=== PATIENT | female | born 1930 | race Caucasian/White ===

== ENCOUNTER → 2017-03-24 | Outpatient (CLI) | payer OTHER, MEDICARE ==
[~2017-03-24] VITALS: Ht 165.1 cm; Wt 76.7 kg
[~2017-03-24] MED LIST: ANTIVERT25 MG PO; ATIVAN1 MG PO; ATORVASTATIN CA80 MG PO; CARISOPRODOL 3350 MG PO; HYDROCODONE-AP1 EAC6 PO; LISINOPRIL10 MG PO; NAPROSYN500 MG PO; OXYBUTYNIN 5 MG5 M2 PO; PREDNISONE 5 MG5 M1 PO; PROZAC10 MG PO; TRAZODONE HCL50 MG PO; VALACYCLOVIR1000 MG PO
--- NOTE | ~2017-03-24 | HPC ---
[facility] [address] [place] [address] PAIN MANAGEMENT CONSULTATION Name: AUREA VIEIRA Room #: REG [facility]reras Jessica.#: [id number] Admission: 03/24/17 Attend Phys: Ariel Castillo DO Discharge: Date of : 31 Report #: [id number] THIS REPORT FOR: //name// CC: Ariel Mccarty MD DATE OF SERVICE: 03/24/2017 DATE OF SERVICE: 03/24/2017. REFERRING PHYSICIAN: Dr. Yung Mccarty. CHIEF COMPLAINT: Right mid and low back pain. HISTORY OF PRESENT ILLNESS: As you know, the patient is an 86-year-old female who has been experiencing right mid and low back pain that began 02/2017. The area of discomfort involves the lower thoracic upper lumbar region and does not radiate in a dermatomal distribution in this directly over what appears to be the free floating eleventh and twelfth rib. It worsens with upper body movement and stretching. Indicates pain has not been improved with conservative medical therapy. The patient states no injury, no trauma that may have led to symptom development. She describes the pain as rhythmic and stabbing, places current pain score 5/10, daily average of 5/10, worst pain has been is 10/10. The patient states pain is exacerbated with any type of movement, improves with sitting in a recliner. She has been referred to our service by her primary care physician to discuss options of treatment for myofascial symptoms. PAST MEDICAL HISTORY: 1. Degenerative joint disease. 2. Osteoarthritis. 3. Breast cancer status post surgery. 4. Daily dizziness. 5. Anxiety disorder. 6. Depression. 7. Dyslipidemia. 8. Hypertension. 9. Urinary incontinence. PAST SURGICAL HISTORY: 1. Hysterectomy. 2. Excision of breast cancer 30 years ago. 3. Revision of breast cancer. It should be a repeat breast cancer excision 10 years ago. SOCIAL HISTORY: The patient denies tobacco, IV or illicit drug use. Admits to [facility] [address] [place] [address] PAIN MANAGEMENT CONSULTATION Name: AUREA VIEIRA Room #: REG [facility].#: [id number] Admission: 03/24/17 Attend Phys: Ariel Castillo DO Discharge: Date of : 31 Report #: [id number] one alcoholic beverage per day. She is a retired office sales consultant insurance. She retired 20 years ago, at the age of 66. She is not receiving any disability income. She is not in litigation in regards to her pain. REVIEW OF SYSTEMS: Positive for decrease in appetite, fatigue and weakness, loss of appetite, changes in bowel movements, frequent urination, nocturia, incontinence, dribbling to urine, lightheadedness and dizziness, depression, excessive urination, bleeding and bruising tendencies, mid back pain. All other review of systems negative per 12-point review of systems other than those listed in history of present illness. Pain impact score 57/70 indicating severe interference of daily activities secondary to pain. ALLERGIES; NOVOCAIN. CURRENT MEDICATIONS: Naproxen 500 mg once a day, meclizine 25 mg once a day, valacyclovir 1000 mg once a day, lorazepam 1 mg 3 times a day, Prozac 10 mg per day, trazodone 50mg 3 times a day, SOMA 350 mg per day, prednisone 5 mg once a day, hydrocodone/acetaminophen 5/325 one tab p.o. q. 4 hours p.r.n. for pain, atorvastatin 80 mg per day, lisinopril 10 mg per day, oxybutynin 5 mg twice a day. IMAGING: No imaging available. PHYSICAL EXAMINATION: VITAL SIGNS: Blood pressure 143/65, pulse 62, respiratory rate 16, unlabored. The patient is 96% on room air, height 5 feet 5 inches tall, weight 169 pounds, BMI calculated 28.1. GENERAL: Well developed, well nourished, well-hydrated 86-year-old female. She appears her stated age, placing current pain score around 5/10. HEENT: Normocephalic, atraumatic. Pupils equal, round, reactive to light. Extraocular muscles are intact. Sclerae nonicteric without injection. NEUROLOGIC: Cranial nerves 2-12 grossly intact. Speech is fluent. The patient deemed an excellent historian. LUNGS: Clear, no wheeze, rhonchi or rales. CARDIOVASCULAR: Regular. No appreciable gallop or rub. ABDOMEN: Soft, mildly obese, normoactive bowel sounds. EXTREMITIES: Show no clubbing, no cyanosis, no edema. MUSCULOSKELETAL: There is palpatory tenderness over the paraspinal musculature on the right mid thoracic, lower thoracic and upper lumbar area. There are no rashes, lesions, ulcerations indicative of herpes zoster. There is no change in color of the skin texture over the area. There is some palpatory tenderness over the eleventh and twelfth rib on the right side. Deep inhalation and exhalation causes slight change in overall pain. Stretching lateral flexion and rotation exacerbate symptoms and no radiation of symptoms in typical [facility] [address] [place] [address] PAIN MANAGEMENT CONSULTATION Name: AUREA VIEIRA Room #: REG JOSE D Adler#: [id number] Admission: 03/24/17 Attend Phys: Ariel LaurenceParul Castillo DO Discharge: Date of : 31 Report #: [id number] distribution of radiculopathy or costal neuritis. ASSESSMENT: Myofascial pain. PLAN: 1. Based on today's physical exam, history, the patient provides the description and the patient uses in regards to pain as well discrete location of her symptoms, likely source of the patient's pain is myofascial in origin. Majority of the patient's symptoms are overlying the eleventh and twelfth rib. She denies any injury or trauma. There is no ecchymosis, no changes in skin color or texture over the area concerning of any kind of trauma or potential rib injury. Appears to be all myofascial in origin. We discussed with the patient treatment options for myofascial pain. These would include the following. 2. We discussed physical therapy, stretching exercises, core strengthening and myofascial release to the area. We discussed medication management, the addition of a consistent nonsteroidal anti-inflammatory in conjunction with her current low dose opioid being provided by her primary care. We discussed trigger point injections as a treatment option. After reviewing risks and benefits of all proposed treatment options, the patient chose to undergo the trigger point injections and to begin stretching exercises and medication management. 3. The patient was started on naproxen sodium 500 mg dose 1 tab p.o. t.i.d., given the patient #90 tablets, advised the patient to watch for dyspepsia, worsening blood pressure, lower extremity edema with its use, if she notes any side effects, discontinue immediately and call for further instructions. 4. The patient will begin physical therapy. She can do this on her own at home or she can follow a formalized program. The patient chose to begin a light stretching at home, formalized program only if her symptoms do not improve with light stretching and exercises as she has already prepared at home. 5. The patient has been consented and we will perform trigger point injections in the area, I have found the 7 discrete trigger points that would require treatment. The patient was advised of the risks and benefits of this procedure. These risks include but are not necessarily limited to bleeding, bruising, infection, worsening pain, no relief of pain, also risk of temporary or permanent muscle weakness, temporary or permanent nerve damage, possible pneumothorax and . The patient states understood and wished to proceed. 6. We wish to thank Dr. Mccarty for the referral of this patient to our clinic. We will keep you apprised of her response to treatment as we address her myofascial symptoms. Again, we wish to thank you for the opportunity to participate in her care. DESCRIPTION OF PROCEDURE: Trigger point injections. After obtaining written consent, the patient was placed in a seated position. By palpating using a single finger 7 trigger points were identified that reproduced the patient's typical radiating pain pattern. Trigger points were [address] [address] PAIN MANAGEMENT CONSULTATION Name: AUREA VIEIRA Room #: REG CL[facility]reras Adler#: [id number] Admission: 03/24/17 Attend Phys: Ariel Castillo DO Discharge: Date of : 31 Report #: [id number] located in the mid thoracic, lower thoracic, paraspinal musculature. Each of the target sites of injection was cleansed with aseptic technique. A 27-gauge 1-1/4 inch needle was then advanced towards each trigger point until the patient's typical radiating pain pattern was reproduced. After negative aspiration for heme, 1 mL of a solution containing 1 mL 40 mg per mL, 40 mg total triamcinolone and 6 mL of bupivacaine 0.5%, bupivacaine was injected in a fanned out distribution at each of the trigger point for a total volume of 8 mL being given. Sterile bandages were placed over each injection site. The patient tolerated procedure well, carefully escorted to the recovery in stable condition. No apparent complications. After meeting discharge criteria, the patient discharged home. <ELECTRONICALLY SIGNED> By: Ariel Castillo DO 03/30/17 1235 0718 1215 Ariel Castillo DO /nt
[2017-03-24 10:39] VITALS: BP 143/65
== END ==
LOC: PAIN 08:43
DX: M19.90 Unspecified osteoarthritis, unspecified site (principal); F41.8 Other specified anxiety disorders; I10 Essential (primary) hypertension

== ENCOUNTER → 2017-04-07 | Outpatient (CLI) | payer OTHER, MEDICARE ==
[~2017-04-07] VITALS: Ht 165.1 cm; Wt 73.4 kg
--- NOTE | ~2017-04-07 | HPC ---
[facility] [place] [address] PAIN MANAGEMENT CONSULTATION Name: AUREA VIEIRA Room #: REG CL[facility]reras Adler#: [id number] Admission: 04/07/17 Attend Phys: Ariel Castillo DO Discharge: Date of : 31 Report #: [id number] THIS REPORT FOR: //name// CC: Ariel Mccarty MD DATE OF SERVICE: 04/07/2017 DATE OF SERVICE: 04/07/2017 CHIEF COMPLAINT: Right mid back and low back pain. HISTORY OF PRESENT ILLNESS: As you know, the patient is an 86-year-old female referred to our service for chronic right mid back and lower back symptoms. Apparently, her pain began without inciting injury or trauma in 02/2017. The area of discomfort at our initial visit involving lower thoracic upper lumbar region on the right side, did not radiate in a dermatomal distribution. We have discussed options for treatment at that visit. The patient underwent trigger point injections in the area. She returns today in followup visit reporting pain score 0/10. She states that her pain when present is intermittent. She describes the pain as pinching, shooting and cramping, but offers a pain score today 0/10. She has returned today in followup visit to discuss possible treatment options for potential recurrence of symptoms. ALLERGIES: NOVOCAIN. CURRENT MEDICATIONS: Oxybutynin 5 mg twice a day, lisinopril 10 mg once a day, atorvastatin 80 mg per day, prednisone 5 mg once a day, carisoprodol 350 mg 3 times a day, Desyrel 50 mg once a day, fluoxetine 10 mg per day, lorazepam 1 mg p.r.n., acyclovir 1000 mg once a day, meclizine 25 mg per day, naproxen 500 mg 3 times a day, trazodone 50 mg p.o. at bedtime. SOCIAL HISTORY: The patient denies tobacco, alcohol, IV or illicit drug use. She is retired. Retired years ago. She is unaccompanied today. IMAGING: No new imaging available. PHYSICAL EXAMINATION: VITAL SIGNS: Blood pressure 140/76, pulse 66, respiratory rate 16, unlabored. The patient is 95% on room air, height 5 feet 5 inches tall, weight 161.8 pounds, BMI calculated 26.9. GENERAL: Well developed, well nourished, well-hydrated 86-year-old female appearing her stated age, placing pain score 0/10. HEENT: Normocephalic, atraumatic. Pupils equal, round, reactive to light. EXTREMITIES: Show no clubbing, no cyanosis, no edema. [address] [address] PAIN MANAGEMENT CONSULTATION Name: AUREA VIEIRA Room #: REG CLContreras Adler#: [id number] Admission: 04/07/17 Attend Phys: Ariel Castillo DO Discharge: Date of : 31 Report #: [id number] MUSCULOSKELETAL: Previous palpatory tenderness over the right mid thoracic, lower thoracic and upper lumbar area is negative. There are no trigger points, no tender points noted. She appears to be doing very well, movement of the thoracolumbar area appears normal. No pain is elicited with rotation or lateral flexion. ASSESSMENT: Myofascial pain. PLAN: The patient has returned today in followup visit with near 100% improvement in overall pain with the previous trigger point injections. She is very pleased with response to the treatment. She returns today to discuss treatment options if her pain does return. At this point, I recommend the patient return to all activities of daily living. She appears to be doing very well from a pain management standpoint. Would recommend continuation of her current daily activities. Certainly if her pain does return or intensifies in anyway, she can return for the next in the series of trigger point injections. We are pleased to see the patient has done very well and we will see her back as necessary. <ELECTRONICALLY SIGNED> By: Ariel Castillo DO 04/14/17 0937 0701 0807 Ariel Castillo DO /nt
[2017-04-07 10:03] VITALS: BP 140/76
== END ==
LOC: PAIN 07:08
DX: M54.5 Low back pain (principal); M79.1 Myalgia; I10 Essential (primary) hypertension; F32.9 Major depressive disorder, single episode, unspecified

== ENCOUNTER 2018-03-14 05:40 | Day surgery (SDC) | payer OTHER, MEDICARE ==
[~2018-03-14] VITALS: Ht 165.1 cm; Wt 72.6 kg
--- NOTE | ~2018-03-14 | O ---
[facility] [place] [place] [address] OPERATIVE REPORT Name: AUREA VIEIRA Room #: 150-9 [facility]..#: [id number] Admission: 03/14/18 Attend Phys: Enrrique Roberson MD Discharge: Date of : 31 Report #: [id number] THIS REPORT FOR: //name// CC: Yung Roberson Omari Eugene MD DATE OF SERVICE: 03/14/2018 SURGEON: Enrrique Roberson MD MANDARIN TUTOR: None. PREOPERATIVE DIAGNOSIS: Bilateral upper lid dermatochalasia with superior visual field defect. POSTOPERATIVE DIAGNOSIS: Bilateral upper lid dermatochalasia with superior visual field defect. OPERATION PERFORMED: Bilateral upper lid functional blepharoplasty. ANESTHESIA: Local with IV sedation. COMPLICATIONS: None. INDICATIONS FOR SURGERY: This patient has acquired upper lid dermatochalasia with superior visual field loss both eyes because of excessive upper lid tissues to include skin and fat. Visual field testing demonstrates dense superior visual defects. Retesting with the upper lid elevated shows an improvement in visual field loss of over 30% and in excess of 12 degrees. The current procedures are undertaken in order to improve the patient's visual function. Informed consent was obtained to include but not limited to the loss of vision, bleeding, infection, scarring, failure to improve the problem and need for further surgery. DESCRIPTION OF OPERATION: The patient was taken to the operating room, where 2% Xylocaine with epinephrine mixed with equal parts of 0.75% Marcaine with Wydase was administered transcutaneously to each upper lid. The patient was then prepped and draped in the usual sterile fashion and a skin-marking pen was then utilized to outline an upper lid crease that was symmetrical on each side. Graefe forceps were then used to quantitate the redundant upper lid skin and it was similarly outlined. The incisions were then made with Abelardo scissors and a skin-muscle flap removed from each side with high-temp cautery. Hemostasis was achieved with the monopolar cautery as it was throughout the case. The [address] [address] OPERATIVE REPORT Name: AUREA VIEIRA Room #: 150-9 [facility]..#: [id number] Admission: 03/14/18 Attend Phys: Enrrique Roberson MD Discharge: Date of : 31 Report #: [id number] orbital septum was then identified and the central and medial fat pads were inspected. The redundant soft tissue was then sculpted with the monopolar cautery. The upper lid crease was then reformed with tightening of the pretarsal orbicularis muscle. The upper lid crease was then further reformed with multiple interrupted 6-0 chromic sutures. The skin was then closed with a running 6-0 plain gut suture. The wound was then cleaned and dressed with ophthalmic antibiotic ointment and a nonstick dressing. The patient was transported to the recovery area, where cold compresses were applied, having tolerated the procedure well with no anesthetic or operative complications being noted. <ELECTRONICALLY SIGNED> By: Enrrique Roberson MD 03/14/18 1651 1254 1318 Enrrique Roberson MD /nt
[~2018-03-14 05:40] MED LIST changes: +ALEVE220 MG PO; +CALCIUM 500 +1 EAC5 PO; +CENTRUM SILVER1 EAC4 PO; +CITRACAL + BON1 EACH PO; +FISH OIL 1,001000 M2 PO; +MECLIZINE HCL12.5 MG PO; +VITAMIN D31000 UNIT PO
[2018-03-14 13:30] VITALS: BP 137/59
== END 2018-03-14 13:50 | disposition home or self-care (01) ==
LOC: TBA 05:40 → OR 05:40
DX: H02.834 Dermatochalasis of left upper eyelid (principal); H02.831 Dermatochalasis of right upper eyelid; H53.462 Homonymous bilateral field defects, left side; H53.461 Homonymous bilateral field defects, right side; I10 Essential (primary) hypertension; E78.00 Pure hypercholesterolemia, unspecified; M19.90 Unspecified osteoarthritis, unspecified site
CPT/HCPCS: 50010; 50101; 50386; 50398; 51636; 56531; 62110; 62850; 70005